=== PATIENT | female | born 1985 | race Caucasian/White ===

== ENCOUNTER 2018-08-20 09:40 | Outpatient (CLI) | payer OTHER | END 2018-08-20 17:00 | disposition home or self-care (01) | LOC: RAD 09:40 → EDBD 09:40 → RAD 17:00 | DX: Z76.89 Persons encountering health services in other specified circumstances (principal) ==

== ENCOUNTER 2018-08-20 10:08 | Outpatient (CLI) | payer OTHER | END 2018-08-20 10:22 | disposition home or self-care (01) | LOC: EKG 10:08 | DX: I49.8 Other specified cardiac arrhythmias (principal) ==

== ENCOUNTER 2018-08-31 05:30 | Day surgery (SDC) | payer OTHER | END 2018-08-31 16:15 | disposition home or self-care (01) | LOC: CIR.AMB 05:30 | DX: M21.862 Other specified acquired deformities of left lower leg (principal) ==

== ENCOUNTER 2025-01-26 14:50 | Emergency (ER) | payer OTHER ==
[~2025-01-26] VITALS: Ht 157.5 cm; Wt 63.5 kg
[2025-01-26] MEDS ORDERED: ORPHENADRINE CITRATE 30 MG/ML AMPUL IM ONE (16:00)
[2025-01-26] MEDS ORDERED: ACETAMINOPHEN 500 MG GEL..CAP PO ONE ×2 (16:00→16:41)
[2025-01-26] MEDS ORDERED: DEXAMETHASONE SODIUM PHOSPHATE 4 MG/ML VIAL IM ONE (16:00)
[2025-01-26] MEDS ORDERED: KETOROLAC TROMETHAMINE 60 MG VIAL IM ONE ×2 (16:00→16:41)
[2025-01-26] MEDS ORDERED: NORFLEX100MG PO (16:23)
[2025-01-26] MEDS ORDERED: KETO10TA2 PO (16:23)
[2025-01-26] MEDS ORDERED: PEPCID AC20 MG PO (16:23)
[2025-01-26] MEDS ORDERED: ORPHENADRINE CITRATE 30 MG/ML AMPUL ONE (16:40)
[2025-01-26] MEDS ORDERED: DEXAMETHASONE SODIUM PHOSPHATE 4 MG/ML VIAL ONE (16:41)
== END 2025-01-26 17:11 | disposition home or self-care (01) ==
LOC: ER 14:51
DX: M54.16 Radiculopathy, lumbar region (principal); Z88.2 Allergy status to sulfonamides